=== PATIENT | female | born 1935 | race Caucasian/White ===

== ENCOUNTER 2025-02-08 08:22 | Outpatient (REF) | payer MEDICARE, SELFPAY ==
--- NOTE | ~2025-02-08 | XR_ITS ---
EXAMINATION: XR KNEE, LEFT CLINICAL INFORMATION: M25.562 - Pain in left knee COMPARISON: None available. TECHNIQUE: Three views of the left knee. FINDINGS: No fracture, dislocation, or suspicious bone lesion. Normal bone mineralization. Normal alignment. Subtle chondrocalcinosis present in the medial and lateral compartments. Moderate to severe arthritis in the patellofemoral compartment. Moderate changes in the medial greater than lateral compartments. Spurring of the tibial spines. Superior patellar enthesopathy present. No significant joint effusion. There are probable varicosities in the the medial distal thigh. Soft tissues otherwise normal. XR/XR knee LT 3V IMPRESSION: 1. No acute bony abnormalities. 2. 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 Electronically signed by: Luis Bailey MD 02/09/2025 03:14 PM EDT
--- OUTSIDE RECORDS SUMMARY | 2025-02-09 08:36 | XMS_ITS | Clinical Summary ---
Author Organization [facility] [employer] [facility] ity Address [address] [place] [address] Care Team Providers Care Dumpman Name Role Phone Unavailable Primary Care Provider [...]
== END 2025-02-08 08:23 | disposition home or self-care (01) ==
LOC: HO.HOSX 08:22
PROVIDERS: Visit Provider Orthopaedic Surgery
DX: M25.562 Pain in left knee (principal); M11.262 Other chondrocalcinosis, left knee; M13.862 Other specified arthritis, left knee
CPT/HCPCS: 73562; 99202

== ENCOUNTER 2025-02-08 12:39 | Outpatient (AMB) | payer MEDICARE, SELFPAY ==
--- NOTE | 2025-02-08 12:52 | MHC.OFFVIS ---
Vital Signs 02/08/25 12:56 Height 5 ft 6 in Weight 183 lb BMI 29.5 Intake Visit Reasons: Left knee pain Intake Note: Bonnie is an 89 year old female who presents with complaints of intermittent discomfort along the anterior aspect of her left knee. She denies any locking or giving way. She has taken Tylenol which gives her mild relief. She has not had an injection. Allergies No Known Allergies Allergy (Verified 02/08/25 12:59) Medication List - Last Reconciled 02/08/25 by James Rodriguez MD losartan-hydrochlorothiazide 100-25 mg 1 tab PO DAILY omeprazole 20 mg PO DAILY simvastatin 20 mg PO BEDTIME timolol maleate 0.5% drps ophthalmic (eye) Physical Exam Vital Signs: BMI result Body Mass Index 29.5 Const Other: Well-nourished well-developed very friendly female awake alert and oriented x3 in no acute distress Extrem Other: Bilateral lower extremity examination shows good capillary refill, no skin lesions noted, normal sensation light touch Left knee examination shows a minimal effusion, mild crepitus with range of motion, no instability Results Reviewed Results Reviewed: X-rays of the patient's left knee show moderate diffuse joint space narrowing, no acute bony abnormalities Assessment & Plan Assessment & Plan (1) Left knee pain: Code(s): M25.562 - Pain in left knee Category: Medical Plan Ms. Quijano presents with intermittent left knee discomfort due to degenerative joint disease. I had a lengthy discussion with the patient regarding the treatment options. At this point the patient's symptoms are tolerable to her. We will hold off on an injection. She will continue with her physical therapy exercises. She will follow up with me on an as-needed basis should her symptoms worsen in any way. Feel free to call me at any time should questions regarding her orthopedic management arise. I spent 21 minutes in reviewing the patient's records and imaging studies, seeing the patient and documenting in the medical record. Orders: Orders XR knee LT 3V Today M25.562 - Pain in left knee Coding Level of Care Code New Pt Level 3 (07505) Complex EM visit Add On G2211 Diagnoses Left knee pain M25.562
[2025-02-08 12:56] VITALS: BMI 29.5
--- OUTSIDE RECORDS SUMMARY | 2025-02-08 13:42 | XMS_ITS | Clinical Summary ---
Author Organization [facility] ity Address [address] [place] [address] Care Team Providers Care Mapping Analyst Name Role Phone Unavailable Primary Care Provider Unavailabl e Social History Tobacco Use Types Packs/Day Years Used Date Smoking Tobacco: Never Assessed Comments Unknown Sex and Gender Information Value Date Recorded Sex Assigned at Not on file Legal Sex Female 3:18 AM EST Gender Identity Not on file Sexual Orientation Not on file Plan of Treatment Health Maintenance Due Date Last Done Comments DTaP,Tdap,and Td Vaccines (1 - Tdap) [birth year]15/1954 Pneumococcal Vaccine: 50+ Ye ars (1 of 1 - PCV) 01/15/1986 Zoster Vaccines (1 of 2) 01/15/1986 RSV Immunization Adult Patie nts (1 - 1-dose 75+ series) 01/15/2011 COVID-19 Vaccine ( - 2023-2 5 season) 2024 Influenza Vaccine (#1) 2024 HIB Vaccines Aged Out No longer eligi ble based on patient's age to complete this topic HPV Vaccines Aged Out No longer eligi ble based on patient's age to complete this topic Hepatitis A Vaccines Aged Out No long er eligible based on patient's age to complete this topic Hepatitis B Vaccines Aged Out No long er eligible based on patient's age to complete this topic IPV Vaccines Aged Out No longer eligi ble based on patient's age to complete this topic MMR Vaccines Aged Out No longer eligi ble based on patient's age to complete this topic Meningococcal ACWY Vaccine Aged Out N o longer eligible based on patient's age to complete this topic Meningococcal B Vacine Aged Out No lo nger eligible based on patient's age to complete this topic RSV Immunization Patients Un mary jo 20 months Aged Out No longer eligible b ased on patient's age to complete this topic Varicella Vaccines Aged Out No longer eligible based on patient's age to complete this topic
== END 2025-02-08 13:15 | disposition home or self-care (01) ==
PROVIDERS: Visit Provider Orthopaedic Surgery
DX: M25.562 Pain in left knee (principal)
CPT/HCPCS: 99203; G2211

== ENCOUNTER → 2025-02-08 12:48 | Outpatient (BNV) | payer MEDICARE, SELFPAY | PROVIDERS: Visit Provider Radiology Diagnostic Radiology | DX: M11.262 Other chondrocalcinosis, left knee (principal); M17.12 Unilateral primary osteoarthritis, left knee | CPT/HCPCS: 73562 ==